=== PATIENT | male | born 1985 ===

== ENCOUNTER 2019-11-25 18:02 | Emergency (ER) | payer BC ==
[2019-11-25 18:24] VITALS: BP 149/91
--- NOTE | 2019-11-25 18:46 | ED ---
Asthma - HPI Summary HPI Summary: 34 yo WM h/o asthma presents with chest congestion and mild wheezing 1-2 weeks associated with dry air and wants his "lungs checked". Pt is on albuterol and will soon start Advair as prescribed by his PCP. Denies SOB, cough, fevers. - History of Current Complaint Chief Complaint: UCRespiratory Stated Complaint: CONGESTED Hx Obtained From: Patient Onset/Duration: Lasting Days, Lasting Weeks Timing: Constant Initial Severity: Mild Pain Intensity: 0 Location/Character: Wheezing Aggravating Symptoms: Weather Change, Allergens Alleviating Symptoms: Rest Associated Signs and Symptoms: Positive: Negative - Risk Factors Status Asthmaticus Risk Factors: Negative - Allergy/Home Medications Allergies/Adverse Reactions: Allergies Allergy/AdvReac Type Severity Reaction Status Date / Time No Known Allergies Allergy Verified 11/25/19 18:14 Home Medications: Home Medications Advair 1 puff INH DAILY 07/24/13 [History Confirmed 11/25/19] Acetaminophen [Acetaminophen Extra Strength] 1 tab PO ONCE PRN 11/25/19 [ History Confirmed 11/25/19] Albuterol Sulfate [Albuterol Sulfate Hfa] 2 puff INH DAILY 11/25/19 [History Confirmed 11/25/19] Azithromycin TAB* [Zithromax TAB (Z-DELFINO) 250 mg #6 tabs] 2 tab PO .TODAY, THEN 1 DAILY #1 delfino 11/25/19 [Rx] predniSONE 10 mg TAB [Deltasone 10 MG TAB*] 10 mg PO DAILY 5 Days #5 tab [Rx] PMH/Surg Hx/FS Hx/Imm Hx Previously Healthy: Yes Endocrine/Hematology History: Denies: Hx Diabetes, Hx Thyroid Disease Cardiovascular History: Denies: Hx Hypercholesterolemia, Hx Hypertension, Hx Peripheral Vascular Disease Respiratory History: Reports: Hx Asthma Denies: Hx Chronic Obstructive Pulmonary Disease (COPD) GI History: Denies: Hx Ulcer Musculoskeletal History: Denies: Hx Arthritis, Hx Rheumatoid Arthritis, Hx Osteoporosis Sensory History: Denies: Hx Cataracts, Hx Contacts or Glasses, Hx Glaucoma Opthamlomology History: Denies: Hx Cataracts, Hx Contacts or Glasses, Hx Glaucoma Neurological History: Denies: Hx Headaches, Hx Seizures, Hx Transient Ischemic Attacks (TIA) Psychiatric History: Denies: Hx Anxiety, Hx Depression - Surgical History Surgery Procedure, Year, and Place: Right knee - arthroscopic surgery for ? chipped bone. Left shoulder - labral repair 2004 Infectious Disease History: No Infectious Disease History: Denies: Hx Hepatitis, Hx Human Immunodeficiency Virus (HIV), Traveled Outside the [place] in Last 30 Days - Family History Known Family History: Positive: None - Social History Alcohol Use: None Hx Substance Use: No Substance Use Type: Reports: Marijuana Hx Tobacco Use: No Smoking Status (MU): Never Smoked Tobacco Review of Systems Constitutional: Negative Negative: Fever, Chills Eyes: Negative ENT: Negative Cardiovascular: Negative Negative: Shortness Of Breath, Cough Gastrointestinal: Negative Genitourinary: Negative Musculoskeletal: Negative Skin: Negative Neurological/Mental Status: Negative Positive: Headache Psychological: Normal All Other Systems Reviewed And Are Negative: No Physical Exam - Summary Physical Exam Summary: Vital Signs Reviewed: Yes Gen: NAD Eye Exam: Normal Eyes: Positive: Conjunctiva Clear ENT: Normal ENT inspection Neck: Supple Respiratory: MILD Rhonchi, Faint inpiratory Wheezing, Neg Crackles Cardiovascular Exam: Normal, RRR, S1, S2 Abdomen: NT/ND Musculoskeletal Exam: Normal Neurological Exam: Normal Psychological Exam: Normal Skin Exam: Normal Triage Information Reviewed: Yes Vital Signs On Initial Exam: Initial Vitals Temp Pulse Resp BP Pulse Ox 37.1 C 75 18 149/91 99 11/25/19 18:11 11/25/19 18:11 11/25/19 18:11 11/25/19 18:11 11/25/19 18:11 Vital Signs Reviewed: Yes Appearance: Positive: Well-Appearing Diagnostics - Vital Signs Vital Signs Temp Pulse Resp BP Pulse Ox 11/25/19 18:11 37.1 C 75 18 149/91 99 - Laboratory Lab Statement: Any lab studies that have been ordered have been reviewed, and results considered in the medical decision making process. Asthma Course/Dx - Course Assessment/Plan: Pt denies URI sx, denies covid exposure and declines covid testing - Diagnoses Provider Diagnoses: Asthma exacerbation, Allergies - Critical Care Time Critical Care Statement: Critical care time is provided exclusive of any time spent performing procedures. Discharge ED - Sign-Out/Discharge Documenting (check all that apply): Patient Departure All imaging exams completed and their final reports reviewed: No Studies - Discharge Plan Condition: Stable Disposition: HOME Prescriptions: Azithromycin TAB* [Zithromax TAB (Z-DELFINO) 250 mg #6 tabs] 2 tab PO .TODAY, THEN 1 DAILY #1 delfino predniSONE 10 mg TAB [Deltasone 10 MG TAB*] 10 mg PO DAILY 5 Days #5 tab Patient Education Materials: Asthma (ED), Reactive Airways Disease (ED), Prednisone (By mouth), Azithromycin (By mouth) - Billing Disposition and Condition Condition: STABLE Disposition: Home
== END 2019-11-25 18:55 | disposition home or self-care (01) ==
LOC: UCEAST 18:02
DX: J45.901 Unspecified asthma with (acute) exacerbation (principal)
CPT/HCPCS: 99202; G0463